=== PATIENT | male | born 1980 | race Caucasian/White ===

== ENCOUNTER 2018-05-21 23:27 | Emergency (ER) | payer OTHER, SELFPAY ==
[2018-05-21 23:33] VITALS: BP 129/80; PULSE 70; RESP 16; TEMP 36.2; O2SAT 99; BMI 22.9
--- NOTE | 2018-05-22 00:02 | ED_ITS ---
HPI - Ear Problem General Chief complaint: Ear Stated complaint: Right Ear Problem Time Seen by Provider: 05/22/18 00:01 Source: patient and RN notes reviewed Mode of arrival: ambulatory Limitations: no limitations History of Present Illness HPI Narrative: Patient is a 38-year-old male with severe all right ear pain. 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 He has been having pain for about 2 weeks. He has been taking Mucinex he has had some nasal congestion. Initially both ears were plugged the left 1 cough better. However all right 1 has remained fairly painful and he cannot on plug it. He has not had any drainage from it. He was flying a few days ago and had extreme pain on descent. He has not had any fever. He has been using Afrin for the last 2 days along with Naty and has not had any relief. MD Complaint: ear pain Related Data Previous Rx's Medication Instructions Recorded amoxicillin 500 mg PO TID #20 cap 05/22/18 Allergies Allergy/AdvReac Type Severity Reaction Status Date / Time No Known Drug Allergies Allergy Verified 05/21/18 23:38 Review of Systems Review of Systems GENERAL: Denies chills,fever HEENT: See HPI RESPIRATORY: Denies dyspnea, cough, wheezing CARDIOVASCULAR: Denies chest pain, palpitations GASTROINTESTINAL: Denies nausea, vomiting MUSCULOSKELETAL: Denies extremity pain, injury SKIN: No rash, no laceration, no pruritus NEUROLOGIC: Denies weakness, dizziness, headache, numbness 8 point review of systems is negative except for those stated above and HPI PFSH Social History Smoking Status: Current every day smoker Exam Initial Vital Signs Initial Vital Signs: Vital Signs Temperature 97.2 F L 05/21/18 23:33 Pulse Rate 70 05/21/18 23:33 Respiratory Rate 16 05/21/18 23:33 Blood Pressure 129/80 H 05/21/18 23:33 Pulse Oximetry 99 05/21/18 23:33 GENERAL: Well-appearing, well-nourished and in no acute distress. HEENT: Head atraumatic,EOMI, neck is supple, no sinus tenderness CARDIOVASCULAR: Regular rate and rhythm without murmurs, rubs or gallops. RESPIRATORY: Breath sounds equal bilaterally, no wheezes rales or rhonchi. EXTREMITIES: Normal range of motion, no clubbing or edema. Neurovascularly intact NEUROLOGICAL: Alert and oriented x4. SKIN: Warm, dry, no laceration, no petechiae, no rashes or lesions. HENMT Ears: TM normal on the left, mastoids normal and TM abnormal erythematous on the right and with fluid behind the TM on the right Course Orders Ordered: Discontinued Medications Amoxicillin ( Trimox 250mg Prepack) 1 bottle MISC SEEINSTR ONE Stop: 05/22/18 00:23 Last Admin: 05/22/18 00:35 Dose: 1 bottle Vital Signs - 8 hr 05/21/18 23:33 05/22/18 00:41 Temperature 97.2 F L 97.1 F L Pulse Rate 70 69 Respiratory Rate 16 16 Blood Pressure 129/80 H 124/84 H Pulse Oximetry 99 99 Medical Decision Making MDM Narrative Medical decision making narrative: Patient has had ongoing symptoms for 2 weeks and has failed [id number] medications. Erythematous with fluid will treat with antibiotics. Discharge Plan Departure Patient Disposition: Home, Self-Care Clinical Impression: Otitis media Discharge Date/Time: 05/22/18 00:42 Interventions: ED Discharge Assessment Last Done: 05/22/18 00:41 Instructions: Middle Ear Infection Activity Restrictions/Additional Instructions: *You have been diagnosed with right ear infection *Continue to take medications as directed At your request you're medications have been faxed to [facility] in [place] Amoxicillin 500 mg 3 times a day for 7 days *Follow up with your primary care provider in 2-3 days *Return to ER if you should have any new, worsening or concerning symptoms Prescriptions: New amoxicillin 500 mg capsule 500 mg PO TID Qty: 20 RF: 0 Referrals: [facility] [Provider Group]
[2018-05-22] MEDS: AMOXICILLIN 250 MG PREPACK 1 BOTTLE MISC (00:35)
[2018-05-22 00:41] VITALS: BP 124/84; PULSE 69; RESP 16; TEMP 36.2; O2SAT 99
== END 2018-05-22 00:42 | disposition home or self-care (01) ==
PROVIDERS: Emergency Provider Emergency Medicine
DX: H66.91 Otitis media, unspecified, right ear (principal)
CPT/HCPCS: 99282